=== PATIENT | male | born 1995 | race Caucasian/White ===

== ENCOUNTER 2019-03-22 12:53 | Emergency (ER) | payer MEDICAID ==
[~2019-03-22] VITALS: Ht 180.3 cm; Wt 77.1 kg
[2019-03-22 12:59] VITALS: Ht 180.3 cm; Wt 77.1 kg
[2019-03-22 15:18] VITALS: BP 126/93
== END 2019-03-22 15:18 | disposition home or self-care (01) ==
LOC: ED 12:53
DX: F41.9 Anxiety disorder, unspecified (principal); R07.89 Other chest pain; F19.10 Other psychoactive substance abuse, uncomplicated
CPT/HCPCS: J2060